=== PATIENT | male | born 1975 | race American Indian/Alaskan Native ===

== ENCOUNTER 2016-11-27 08:23 | Emergency (ER) | payer SELFPAY ==
[2016-11-27 09:31] LABS: Basophils % (Auto) 0.3 % (0.0-1.8); Eosinophils % (Auto) 0.8 % (0.0-4.3); Hematocrit 42.4 % (35.5-45.6); Mean Corpuscular HGB Conc 33 % (32-34); Mean Corpuscular Hemoglobin 31 pg (28-32); Mean Corpuscular Volume 95 fl (84-94); Platelet Count 197 K/mm3 (140-440); Red Blood Count 4.47 M/mm3 (3.65-5.03); White Blood Count 10.1 K/mm3 (4.5-11.0)
[2016-11-27 10:02] LABS: INR 0.95 (0.87-1.13)
[2016-11-27 10:03] LABS: Partial Thromboplastin Time 31.3 Sec. (24.2-36.6)
[2016-11-27 10:41] LABS: Bilirubin,Urine NEG (Negative); Blood,Urine NEG (Negative); Ketones,Urine TR mg/dL (Negative); Leukocyte Esterase,Urine NEG (Negative); Mucus,Urine 3+ /HPF; Nitrite,Urine NEG (Negative); Urobilinogen,Urine < 2.0 mg/dL (<2.0)
--- NOTE | 2016-11-27 10:45 | Cat Scan Report ---
CT HEAD WITHOUT CONTRAST INDICATION: Neuro deficits. COMPARISON: None similar. FINDINGS: Noncontrast head CT demonstrates symmetric, age-appropriate ventricles and sulci without acute or recent infarct, hemorrhage, mass effect or midline shift. Approximately 2 mm subtle nonspecific density along the right MCA questioned on axial image 16, series 2. Approximately 6 mm subtle round hyperdensity also appears right suprasellar near the MCA origin as on axial image 18, series 2, again nonspecific, though possibilities as an aneurysm difficult to entirely exclude. No abnormal extra-axial fluid collections. Posterior fossa structures and basilar cisterns appear within normal limits. Symmetric eye globes. Mild ethmoid sinus mucosal thickening posteriorly and mild right sphenoid sinus mucosal thickening anteriorly noted. Clear remainder imaged paranasal sinuses and mastoid air cells. Intact calvarium. Normal overlying scalp soft tissues. Few radiopaque dental material incidentally noted. Right external auditory canal debris may be directly visualized. CONCLUSION: Questionable/nonspecific right MCA CT findings with preserved carroll-white matter differentiation, as described. Please correlate clinically and with additional imaging, if warranted. I phoned the above results to Dr. Waterman in the ER, 10:35 AM, 11/27/2016. Thank you for the opportunity to participate in this patient's care.
[2016-11-27 11:24] LABS: Anion Gap 18 mmol/L; Blood Urea Nitrogen 12 mg/dL (9-20); Calcium 9.6 mg/dL (8.4-10.2); Carbon Dioxide 24 mmol/L (22-30); Glucose 136 mg/dL (75-100); Potassium 3.6 mmol/L (3.6-5.0); Sodium 140 mmol/L (137-145)
--- NOTE | 2016-11-27 11:46 | Emergency Department Report ---
HPI - General Chief Complaint: Neuro Symptoms/Deficit Time Seen by Provider: 11/27/16 11:28 - HPI HPI: Room 4 The patient is a 41-year-old male presenting with chief complaint of left facial weakness. The patient states he noticed the symptoms 3 days ago. Patient denies headache, dysphagia, extremity weakness or paresthesia. Patient denies any previous episodes of same Location: Left face Duration: Constant 4 days Quality: Weakness Severity: Moderate Modifying factors: [see above] Context: [see above] Mode of transportation: Unknown ED Past Medical Hx - Past Medical History Previous Medical History?: No - Surgical History Past Surgical History?: No - Family History Family history: no significant - Social History Smoking Status: Current Every Day Smoker Substance Use Type: Alcohol - Medications Home Medications: Home Medications Medication Instructions Recorded Confirmed Last Taken Type Dextran 70/Hypromellose 1 each OD TID #1 bottle 11/27/16 Unknown Rx [Artificial Tears] Valacyclovir HCl [Valtrex] 1,000 mg PO TID #21 tablet 11/27/16 Unknown Rx predniSONE [Deltasone] 80 mg PO QDAY #28 tablet 11/27/16 Unknown Rx ED Review of Systems ROS: Stated complaint: LEFT SIDE FACIAL DROP Other details as noted in HPI Comment: All other systems reviewed and negative Constitutional: denies: chills, fever Eyes: denies: eye pain, eye discharge, vision change ENT: denies: ear pain, throat pain Respiratory: denies: cough, shortness of breath, wheezing Cardiovascular: denies: chest pain, palpitations Endocrine: no symptoms reported Gastrointestinal: denies: abdominal pain, nausea, diarrhea Genitourinary: denies: urgency, dysuria Musculoskeletal: denies: back pain, joint swelling, arthralgia Skin: denies: rash, lesions Neurological: weakness. denies: headache Psychiatric: denies: anxiety, depression Hematological/Lymphatic: denies: easy bleeding, easy bruising Physical Exam - Physical Exam Vital Signs: Vital Signs 11/27/16 08:35 Temperature 97.7 F Pulse Rate 59 L Respiratory 16 Rate Blood Pressure 129/92 O2 Sat by Pulse 100 Oximetry Physical Exam: GENERAL: The patient is well-developed well-nourished male lying on stretcher not appearing to be in acute distress. [] HEENT: Normocephalic. Atraumatic. Extraocular motions are intact. Patient has moist mucous membranes. NECK: Supple. Trachea midline CHEST/LUNGS: Clear to auscultation. There is no respiratory distress noted. HEART/CARDIOVASCULAR: Regular. There is no tachycardia. There is no gallop rub or murmur. ABDOMEN: Abdomen is soft, nontender. Patient has normal bowel sounds. There is no abdominal distention. SKIN: There is no rash. There is no edema. There is no diaphoresis. NEURO: The patient is awake, alert, and oriented. The patient is cooperative. Cranial nerves II through XII grossly intact with exception of cranial nerve VII on the left as patient's exam is consistent with a seventh nerve palsy. There is no forehead sparing. The patient has normal speech. There is no drift. Audioprosthologist 5+/5 bilaterally MUSCULOSKELETAL: There is no evidence of acute injury. ED Course Vital Signs 11/27/16 08:35 Temperature 97.7 F Pulse Rate 59 L Respiratory 16 Rate Blood Pressure 129/92 O2 Sat by Pulse 100 Oximetry - Consultations Consultation #1: 11/27/16 13:18 [facility] transfer line called 11/27/16 14:08 Case discussed with neurosurgeon Dr. Estrella. States symptoms are secondary to peripheral nerve/Etienne's palsy. Aneurysm was found incidentally. No need for transfer due to this finding. However patient should follow-up in the cerebrovascular clinic where his aneurysm will likely be observed. ED Medical Decision Making - Lab Data Result diagrams: 11/27/16 09:10 11/27/16 10:52 Laboratory Tests 11/27/16 11/27/16 11/27/16 09:10 09:10 09:10 WBC 10.1 RBC 4.47 Hgb 14.0 Hct 42.4 MCV 95 H MCH 31 MCHC 33 RDW 14.0 Plt Count 197 Lymph % (Auto) 22.1 [place] % (Auto) 8.2 H Eos % (Auto) 0.8 Baso % (Auto) 0.3 Lymph # 2.2 [place] # 0.8 Eos # 0.1 Baso # 0.0 Seg Neutrophils % 68.6 Seg Neutrophils # 6.9 PT 12.6 INR 0.95 APTT 31.3 Thrombin Time 15.9 Sodium Potassium Chloride Carbon Dioxide Anion Gap BUN Creatinine Estimated GFR BUN/Creatinine Ratio Glucose Calcium Troponin T Urine Color Urine Turbidity Urine pH Ur Specific [place] Urine Protein Urine Glucose (UA) Urine Ketones Urine Blood Urine Nitrite Urine Bilirubin Urine Urobilinogen Ur Leukocyte Esterase Urine WBC (Auto) Urine RBC (Auto) U Epithel Cells (Auto) Urine Mucus 11/27/16 11/27/16 09:59 10:52 WBC RBC Hgb Hct MCV MCH MCHC RDW Plt Count Lymph % (Auto) [place] % (Auto) Eos % (Auto) Baso % (Auto) Lymph # [place] # Eos # Baso # Seg Neutrophils % Seg Neutrophils # PT INR APTT Thrombin Time Sodium 140 Potassium 3.6 Chloride 102.0 Carbon Dioxide 24 Anion Gap 18 BUN 12 Creatinine 1.0 Estimated GFR > 60 BUN/Creatinine Ratio 12.00 Glucose 136 H Calcium 9.6 Troponin T < 0.010 Urine Color Yellow Urine Turbidity Clear Urine pH 5.0 Ur Specific [place] 1.028 Urine Protein 30 mg/dl Urine Glucose (UA) Neg Urine Ketones Tr Urine Blood Neg Urine Nitrite Neg Urine Bilirubin Neg Urine Urobilinogen < 2.0 Ur Leukocyte Esterase Neg Urine WBC (Auto) 2.0 Urine RBC (Auto) 1.0 U Epithel Cells (Auto) 1.0 Urine Mucus 3+ - EKG Data -: EKG Interpreted by [place] EKG shows normal: sinus rhythm Rate: bradycardia (58 bpm) - EKG Data When compared to previous EKG there are: previous EKG unavailable Interpretation: nonspecific ST-T wave [place] - Radiology Data Radiology results: report reviewed (CT head), image reviewed (CT head) CT head (read by radiologist)-questionable nonspecific right MCA CT findings with preserved carroll-white matter differentiation. Please correlate clinically and with additional imaging if warranted. - Differential Diagnosis bells palsy, cerebral aneurysm Critical care attestation.: If time is entered above; I have spent that time in minutes in the direct care of this critically ill patient, excluding procedure time. ED Disposition Clinical Impression: Etienne's palsy, Cerebral aneurysm without rupture Disposition: DC-01 TO HOME OR SELFCARE Is pt being admited?: No Does the pt Need Aspirin: No Condition: Stable Instructions: Etienne Palsy (ED) Additional Instructions: You are being given a copy of your MRI which reveals a 6 mm aneurysm off of the right MCA . You should go to the nearest emergency department immediately if you develop a severe headache suddenly. Return to the emergency department immediately should you develop worsening symptoms, fever, inability to tolerate food or liquid or any other concerns. Prescriptions: Dextran 70/Hypromellose [Artificial Tears] 1 each OD TID #1 bottle predniSONE [Deltasone] 80 mg PO QDAY #28 tablet Valacyclovir HCl [Valtrex] 1,000 mg PO TID #21 tablet Referrals: PRIMARY CARE, [Primary Care Provider] - 3-[address] Nicanor Quintana, [facility] [Other] - [facility] Time of Disposition: 14:13
--- NOTE | 2016-11-27 14:04 | Magnetic Resonance Report ---
MRA HEAD WITHOUT CONTRAST INDICATION: Left facial weakness. Possible Etienne's palsy. Abnormal head CT. COMPARISON: Head CT from earlier today. FINDINGS: MRA of the head performed without intravenous contrast and demonstrates no evidence of flow-limiting stenosis or occlusion. Please note that detection of aneurysms less than 5 mm is limited on this exam. However, approximately 6 x 4 mm aneurysm noted superiorly, arising approximately 5 mm from the MCA/M1 segment origin from the ICA as on axial source series 3, images 75-79. Dominant right vertebral artery predominantly continues as the basilar artery. A small left vertebral artery may also be present, not significantly contributing to the basilar artery. CONCLUSION: Approximately 6 x 4 mm right MCA/M1 segment aneurysm projecting right suprasellar, as described. Normal remainder [place]. I phoned the above results to Dr. Kwon in the ER, 12:45 PM, 11/27/2016. Thank you for the opportunity to participate in this patient's care.
[2016-11-27 14:30] VITALS: BP 113/77
== END 2016-11-27 14:30 | disposition home or self-care (01) ==
LOC: ED 08:23
DX: G51.0 Bell's palsy (principal); I67.1 Cerebral aneurysm, nonruptured; F17.200 Nicotine dependence, unspecified, uncomplicated
CPT/HCPCS: 36415; 70450; 70544; 80048; 81001; 82962; 84484; 85025; 85610; 85670; 85730; 93005; 93010; 99285

== ENCOUNTER 2017-02-05 00:48 | Emergency (ER) | payer SELFPAY ==
[2017-02-05 02:16] VITALS: BP 177/95
== END 2017-02-05 02:06 | disposition left against medical advice (07) ==
LOC: ED 00:48
DX: K08.89 Other specified disorders of teeth and supporting structures (principal); Z53.21 Procedure and treatment not carried out due to patient leaving prior to being seen by health care provider